=== PATIENT | male | born 1960 | race Caucasian/White ===

== ENCOUNTER 2018-07-27 12:12 | Emergency (ER) | payer OTHER ==
[~2018-07-27] VITALS: Ht 175.3 cm; Wt 95.0 kg
--- NOTE | 2018-07-27 12:36 | NUR ---
PT AURELIA "JUSTIN" AT THIS TIME ARRIVES TO ED WITH SEVERE PAIN OF LEFT FLANK. PT REPORTS SHE HAS HAD PAIN LIKE THIS BEFORE AND WAS IN "KIDNEY FAILURE" CHRONIC HX OF THIS. PT REPORTS SHE HAS HAD A STONE BEFORE. PT UNABLE TO SIT STILL FOR COMPLETE ASSESSMENT BUT GROSS NEURO IS INTACT. ABLE TO WALK ONTO WHEELCHAIR WITH SOME DISTRESS. PT TAKEN TO RESTROOM WITH SIGNIFICANT OTHER FOR UA SAMPLE. AWAITING FURTHER ORDERS AT THIS TIME.
[2018-07-27] MEDS ORDERED: ONDANSETRON 2MG/ML, 2ML ONE (12:56)
[2018-07-27] MEDS ORDERED: MORPHINE SULFATE 4 MG/ML, 1ML ONE (12:57)
[2018-07-27] MEDS ORDERED: SODIUM CHLORIDE FLUSH 10ML SYR IVF ONE (13:00)
[2018-07-27] MEDS ORDERED: MORPHINE SULFATE 4 MG/ML, 1ML IVPush PRN (13:00)
[2018-07-27] MEDS ORDERED: ONDANSETRON 2MG/ML, 2ML IVPush ONE (13:00)
[2018-07-27 13:13] LABS: BASOPHILS # (AUTO) 0.03 x10^3/uL (0-0.1); BASOPHILS % (AUTO) 0 % (0-1); EOSINOPHILS # (AUTO) 0.24 x10^3/uL (0-0.4); EOSINOPHILS % (AUTO) 3 % (1-7); LYMPHOCYTES # (AUTO) 2.02 x10^3/uL (1-3.4); LYMPHOCYTES % (AUTO) 28 % (22-44); MD NO; MEAN CORPUSCULAR HEMOGLOBIN 30.9 pg (27.5-34.5); MEAN CORPUSCULAR HGB CONC 34.3 g/dL (33.2-36.2); MEAN CORPUSCULAR VOLUME 90.2 fL (81-97); MEAN PLATELET VOLUME 7.9 fL (7.4-10.4); MONOCYTES # (AUTO) 0.36 x10^3/uL (0.2-0.8); MONOCYTES % (AUTO) 5 % (2-9); NEUTROPHILS % (AUTO) 64 % (42-75); PLATELET COUNT 292 x10^3/uL (130-400); RED BLOOD COUNT 5.22 x10^6/uL (4.38-5.82)
[2018-07-27 13:25] LABS: ALANINE AMINOTRANSFERASE 25 U/L (12-78); ALBUMIN 4.5 g/dL (3.4-5.0); ANION GAP 11 mmol/L (5-15); CALCIUM 9.3 mg/dL (8.5-10.1); CHLORIDE 106 mmol/L (98-107)
[2018-07-27 13:27] LABS: ALKALINE PHOSPHATASE 102 U/L (45-117); BILIRUBIN,TOTAL 0.8 mg/dL (0.2-1.0); TOTAL PROTEIN 8.3 g/dL (6.4-8.2)
--- NOTE | 2018-07-27 13:33 | NUR ---
PT REPORTING ABD PAIN, BILATERAL BP DIFFRENTIATING Y OVER 20 POINTS. PA INFORMED AT THIS TIME.
[2018-07-27 13:49] LABS: CULTURE INDICATED? YES; MICROSCOPIC INDICATED
[2018-07-27 14:46] VITALS: BP 184/89
--- NOTE | 2018-07-27 14:46 | NUR ---
PT BACK FROM CT, REPORTING PAIN IMPROVEMENT.
[2018-07-27] MEDS ORDERED: OMNIPAQUE 350 MG/ML, 100ML BOTTLE ONE (14:48)
[2018-07-27] MEDS ORDERED: MAGNESIUM CITRATE 300ML ORAL SOL ONE (15:06)
--- NOTE | 2018-07-27 15:24 | NUR ---
Patient/Caregiver given discharge instructions and they have confirmed that they understand the instructions. Patient ambulatory with steady gait.
== END 2018-07-27 15:47 | disposition home or self-care (01) ==
LOC: ED 12:59
DX: M51.36 Other intervertebral disc degeneration, lumbar region (principal); K59.00 Constipation, unspecified; R10.84 Generalized abdominal pain
CPT/HCPCS: 36415; 72110; 74177; 80053; 81001; 85025; 87086; 96374; 96375; 99284; J2405; Q9967